=== PATIENT | female | born 1980 | race Caucasian/White ===

== ENCOUNTER 2024-02-16 17:13 | Emergency (ER) | payer BC, SELFPAY ==
[2024-02-16 17:16] VITALS: BP 116/83
[2024-02-16 18:07] VITALS: BMI 25.0
[2024-02-16 18:24] LABS: % Basophils 0.5 % (0-2); % Eosinophils 0.2 % (0-6); % Immature Granulocytes 0.2 % (0-0.5); % Lymphocytes 10.5 % (20.5-51.1); % Neutrophils 84.6 % (42.2-75.2); Absolute Lymphocytes 0.7 10^3/uL (1.2-3.4); Absolute Monocytes 0.3 10^3/uL (0.1-0.6); Absolute Neutrophils 5.5 10^3/uL (1.4-6.5); Hematocrit 38.1 % (37.0-47.0); Hemoglobin 13.4 g/dL (12.0-16.0); Mean Corp Hgb Conc. 35.2 g/dL (33.0-37.0); Mean Corpuscular Hgb 29.3 pg (27.0-31.0); Mean Corpuscular Volume 83.2 fL (81.0-99.0); Mean Platelet Volume 9.5 fL (7.4-10.4); Nucleated Red Blood Cells % 0 %; Platelet Count 227 10^3/uL (130-400); Red Blood Cell Count 4.58 10^6/uL (4.20-5.40); Red Cell Dist. Width 12.2 % (11.5-14.5); White Blood Cell Count 6.5 10^3/uL (4.8-10.8)
[2024-02-16 18:38] LABS: HCG, Serum Qualitative Screen Negative
[2024-02-16 18:42] LABS: ALT (SGPT) 15 U/L (0-35); AST (SGOT) 22 U/L (14-36); Albumin 4.1 g/dl (3.5-5.0); Alkaline Phosphatase 51 U/L (38-126); Blood Urea Nitrogen 12 mg/dl (7-17); Calcium 9.2 mg/dl (8.4-10.2); Carbon Dioxide 25 mmol/L (22-30); Chloride 103 mmol/L (98-107); Estimated Creatinine Clearance 104 ml/min; Glucose 94 mg/dl (70-99); Lipase 108 U/L (23-300); Potassium 3.9 mmol/L (3.5-5.1); Sodium 134 mmol/L (135-145); Total Bilirubin 0.5 mg/dl (0.2-1.3); Total Protein 6.6 g/dl (6.3-8.2); eGFR > 60.00
[2024-02-16 21:40] VITALS: BP 93/77
[2024-02-16 21:45] LABS: Urine Albumin Negative (Neg - Trace); Urine Bilirubin Negative (Negative); Urine Character Clear (Clear); Urine Color Yellow; Urine Glucose Negative (Negative); Urine Ketone Negative (Negative); Urine Leukocyte Negative (Negative); Urine Nitrite Negative (Negative); Urine Occult Blood Negative (Negative); Urine Urobilinogen Negative (Neg - 1+); Urine pH 6.5 (5.0-9.0)
[2024-02-16 22:00] VITALS: BP 115/72
[2024-02-16 23:00] VITALS: BP 110/79
--- NOTE | 2024-02-16 23:56 | ED.GENMED ---
History of Present Illness
General
Chief Complaint: Abdominal Pain
Source: patient
Exam Limitations: none
Time Seen by Provider: 02/16/24 18:19
Nursing documentation reviewed up to this point in time: agreed with
Travel History
Have you had any contact with someone who has COVID-19?: No
Do you have any symptoms of coronavirus? Fever > 100 degrees, chills, cough, shortness of breath, sore throat, loss of taste or smell, muscle aches, or headache?: No
History of Present Illness
History of Present Illness:
43-year-old female with past medical history of celiac disease presents to the emergency room for evaluation of abdominal pain and diarrhea. Patient reports that she has had intermittent ear diarrhea for quite some time that seem to resolve after
she limited dairy from her diet but over the past 2 days it has returned. Today she started to have some vague right-sided abdominal pain that for a brief period of time was rather intense but seems to have subsided. She came to the emergency room
be assessed. She says she did have some fatigue, chills and achiness earlier that have resolved. She denies any nausea or vomiting. Denies any dysuria, hematuria, change in urinary frequency. Denies any vaginal bleeding or discharge. Last
menstrual period was 2 weeks ago. She denies any fever or chills. She denies similar pains in the past. No prior history of abdominal surgeries.
Past History
Past History
ED Past Medical History: Other (Palpatations); Negative Asthma, HTN, Hypercholesterolemia or NIDDM
ED Past Surgical History: None
Social History
Tobacco: Non-smoker
Alcohol: None
Personal:
Living: with family
Review of Systems
Review of Systems
All Other Systems: ROS reviewed and negative except as documented in HPI and ROS
Constitutional: Reports fatigue and chills; Denies fever
Respiratory: Denies cough or trouble breathing
Cardiac: Denies chest pain or palpitations
ABD/GI: Reports abdominal pain and diarrhea; Denies nausea, vomiting or bloody stools
: Denies dysuria, frequency, flank pain or bleeding
Musculoskeletal: Reports muscle pain (Body aches); Denies neck pain or back pain
Neurological: Denies dizzy or headache
Phy Exam
Physical Exam
Physical Exam:
General: Awake, alert, oriented x3; no acute distress
Head: Normocephalic, atraumatic
Eyes: Conjunctiva normal, sclera anicteric
Throat: Airway intact, handling secretions
Neck: Trachea midline, supple without meningismus
Lungs: Clear to auscultation bilaterally, no wheezing, rales, rhonchi
Heart: Regular rate and rhythm, no murmurs, gallops, or rubs
Abd: Soft, non distended, nontender to deep palpation
Back: No CVA tenderness
Neuro: No gross deficits
Skin: no rash
Extremities: No edema in extremities, equal pulses in all extremities
Scores
Heart Failure Risk
Heart Failure Risk Score: Not Applicable
Heart Score for Chest Pain Patients
STEMI patient?: Not applicable
Withdrawal Assessment of Alcohol
Withdrawal Assessment Completed?: Not applicable
Course
Orders/Labs/Results
Orders:
Orders
02/16/24 18:10
Test Result ONCE
02/16/24 18:15
Complete Blood Count/With Diff Urgent
Comprehensive Metabolic Panel Urgent
HCG, Serum Qualitative Screen Urgent
Lipase Urgent
02/16/24 19:21
CT Abd/pelvis W Iv Cont Urgent
Comment:
Reason For Exam: right sided abd pain, diarrhea
02/16/24 21:35
Urinalysis Reflex To Culture Urgent
Date Specimen was Collected: 02/16/24
Time Specimen was Collected: 21:26
Abnormal Lab Results
02/16/24
18:15
Absolute Lymphs (auto) 0.7 L 10^3/uL
(1.2-3.4)
Neutrophils % 84.6 H %
(42.2-75.2)
Lymphocytes % 10.5 L %
(20.5-51.1)
Sodium 134 L mmol/L
(135-145)
02/16/24 18:15
02/16/24 18:15
Vital Signs
Initial and Last Documented VS:
Initial Vital Signs
Temp Pulse Resp BP Pulse Ox
37.4 C 84 18 116/83 99
02/16/24 17:16 02/16/24 17:16 02/16/24 17:16 02/16/24 17:16 02/16/24 17:16
Last Documented Vital Signs
Temp Pulse Resp BP Pulse Ox
37.4 C 84 18 110/79 98
02/16/24 17:16 02/16/24 17:16 02/16/24 17:16 02/16/24 23:00 02/16/24 23:00
MDM/Problems Addressed
Differential Diagnosis Includes:
Enteritis, appendicitis, diverticulitis, ovarian cyst, UTI, nephrolithiasis
MDM/Problems Addressed:
43-year-old female presents for evaluation of vague right-sided abdominal pain associated with diarrhea. Vital signs normal. Exam as above�no significant tenderness on my assessment. Plan to place an IV check labs including a CBC and a CMP,
lipase, hCG. Will check a urinalysis. Will check CT abdomen pelvis. Reassess after the above.
Labs reviewed: CBC unremarkable, CMP no clinically significant abnormalities. hCG negative. Lipase normal. Urinalysis negative for infection. CT abdomen pelvis no acute pathology to account for patient's symptoms. Could be a mild enteritis
versus a dietary intolerance. In my judgment she is stable for discharge at this point in time. Advised to return if symptoms seem to be worsening otherwise to follow-up with her primary care physician. She feels comfortable with this plan.
Spoke about return precautions all questions answered.
*Radiology
Radiology exam reviewed: radiology read reviewed
*Pulse Oximetry
Patient hypoxic: no
*Critical Care Note
Total Time (30-74mins, 75-104mins- exclusive of procedures): Not Applicable
Data Reviewed
Source: patient
ED Attending Note
-
Portions of this chart may have been created with voice recognition software.� Occasional wrong word or��sound alike� substitutions may have occurred due to the inherent limitations of voice recognition software.
Discharge Plan
Departure
Patient Disposition: Home (Routine Discharge)
Date of Disposition: 02/16/24
Time of Disposition: 22:50
Patient with high blood pressure during this ER visit?: No
Discharge Problem:
Abdominal pain, Diarrhea
Instructions: Abdominal Pain
Prescriptions:
No Action
No Current Medications
0
Referrals:
Dorian Aviles MD [Family Provider] - Follow up in 5-7 days
Activity Restrictions/Additional Instructions:
Thank you for visiting the Emergency Department at [facility].
1. Please schedule a follow up appointment as directed. Call first thing tomorrow morning to make an appointment.
2. If indicated, please take your medications as instructed and indicated on discharge paperwork.
3. If any of your symptoms do not improve, or persist, or become more severe within 6-12 hours, please return to the emergency department for further care.
4. Please return to the emergency department if you develop a headache, neck pain/stiffness, fever greater than 100.4F, chest pain, shortness of breath, persistent nausea, vomiting, slurred speech, difficulty walking, numbness/tingling, weakness,
signs of infection or any other symptoms that are worrisome to you.
Please call [phone] if you have any questions.
Interventions
Interventions:
*Risk Screen - Suicide Last Done: 02/16/24 17:16
*General Assessment Last Done: 02/16/24 17:16
*Neglect/Abuse Screening Last Done: 02/16/24 17:16
ED- Fall Risk Assessment Last Done: 02/16/24 18:18
*ED COVID-19 Vaccine History Last Done: 02/16/24 18:07
*Nursing Disposition Last Done: 02/16/24 23:04
HQ-Tniqsn-Iccrtfegcp Assessment Last Done: 02/16/24 18:17
Discharge Date and Time
Discharge Date/Time: 02/16/24 23:05
Print Language: YAKUT
== END 2024-02-16 23:05 | disposition home or self-care (01) ==
LOC: EMR 17:13
PROVIDERS: EMERGENCY PHYSICIAN Emergency Medicine; FAMILY PHYSICIAN Family Medicine
DX: R19.7 Diarrhea, unspecified (principal); R10.9 Unspecified abdominal pain; R53.83 Other fatigue; K90.0 Celiac disease; Z88.0 Allergy status to penicillin
CPT/HCPCS: 99285; 74177; 80053; 81003; 83690; 84703; 85025; Q9967